=== PATIENT | female | born 1960 | race Caucasian/White ===

== ENCOUNTER 2020-03-23 12:44 | Observation (INO) | payer BC, MEDICAID ==
[~2020-03-23] VITALS: Ht 152.4 cm; Wt 57.7 kg
[2020-03-23 13:15] LABS: BASOPHILS # (AUTO) 0.1 X10'3 (0-0.2); BASOPHILS % (AUTO) 0.8 % (0-1); EOSINOPHILS % (AUTO) 0.5 % (0-6); HEMATOCRIT 42.7 % (35.0-45.0); HEMOGLOBIN 14.3 g/dl (12.0-16.0); LYMPHOCYTES # (AUTO) 2.8 X10'3 (1.1-4.8); MEAN CORPUSCULAR HEMOGLOBIN 32.3 PG (27.0-31.0); MEAN CORPUSCULAR HGB CONC 33.4 g/dL (33.0-36.5); MEAN CORPUSCULAR VOLUME 96.5 FL (78-98); MEAN PLATELET VOLUME 8.7 FL (7.4-10.4); MONOCYTES # (AUTO) 0.5 X10'3 (0-0.9); MONOCYTES % (AUTO) 6.2 % (2-12); NEUTROPHILS # (AUTO) 4.3 X10'3 (1.8-7.7); NEUTROPHILS % (AUTO) 56.5 % (42-75); PLATELET COUNT 243 X10'3 (140-440); RED BLOOD COUNT 4.43 X10'6 (4.20-5.60); RED CELL DISTRIBUTION WIDTH 14.1 % (11.5-14.5); WHITE BLOOD COUNT 7.7 X10'3 (4.5-11.0)
[2020-03-23] MEDS ORDERED: HYDROcodone/acetaminophen 5mg/325mg tablet PO PRN (13:25)
[2020-03-23] MEDS ORDERED: morphine 2 MG/ML inj. syringe IV PRN ×2 (13:25)
[2020-03-23] MEDS ORDERED: nitroGLYCERIN 0.4mg SUBLingual tab SL PRN (13:25)
[2020-03-23] MEDS ORDERED: mag hydrox/Alum hydrox/simeth 30ml oral suspension PO PRN (13:25)
[2020-03-23] MEDS ORDERED: magnesium hydroxide 30ml (MOM) UD suspension PO PRN (13:25)
[2020-03-23] MEDS ORDERED: ondansetron/PF 4mg/2ml inj IV PRN (13:25)
[2020-03-23] MEDS ORDERED: acetaminophen 325mg tablet PO PRN ×2 (13:25)
[2020-03-23] MEDS ORDERED: HYDROcodone/acetaminophen 10/325mg tab PO PRN (13:25)
[2020-03-23 13:34] LABS: ALANINE AMINOTRANSFERASE 24 U/L (12-78); ALBUMIN 3.4 G/DL (3.4-5.0); ALKALINE PHOSPHATASE 61 IU/L (46-116); ANION GAP 8 (8-16); ASPARTATE AMINO TRANSFERASE 25 U/L (10-37); BILIRUBIN,TOTAL 0.3 MG/DL (0.1-1.0); BLOOD UREA NITROGEN 9 MG/DL (7-18); BUN/CREATININE RATIO 8.1 (6.6-38.0); CALCIUM 9.1 MG/DL (8.5-10.1); CHLORIDE 107 MMOL/L (99-107); CREATININE 1.11 MG/DL (0.40-0.90); GLUCOSE 109 MG/DL (70-104); POTASSIUM 4.4 MMOL/L (3.5-5.1); SODIUM 142 MMOL/L (135-145); TOTAL CARBON DIOXIDE 26.6 MMOL/L (24-32); TOTAL PROTEIN 6.9 G/DL (6.4-8.2); eGFR 50 ML/MIN
[2020-03-23 13:43] LABS: MAGNESIUM 1.8 MG/DL (1.5-2.4)
[2020-03-23 13:54] LABS: D-DIMER 0.39 MG/L FEU (0-0.50)
[2020-03-23] MEDS ORDERED: TRAZ-256 PO (13:56)
[2020-03-23] MEDS ORDERED: LORA-269 PO (13:56)
[2020-03-23] MEDS ORDERED: SERT100T10 PO (13:56)
[2020-03-23] MEDS ORDERED: ZIPR40CA2 PO (13:56)
[2020-03-23 15:00] VITALS: BP 115/64
[2020-03-23] MEDS ORDERED: LORazepam 1 MG tablet PO PRN (17:20)
[2020-03-23 18:00] VITALS: BP 108/60
--- NOTE | 2020-03-23 19:26 | NUR ---
Patient in room MED 308. I have received report from amor SILVA and had the opportunity to ask questions and assume patient care.
[2020-03-23] MEDS ORDERED: traZODone 50mg tablet PO SCH (21:00)
[2020-03-23 22:00] VITALS: BP 128/64
[2020-03-24 02:00] VITALS: BP 153/62
--- NOTE | 2020-03-24 02:19 | NUR ---
PAGER ID: [phone] MESSAGE: Meagan Lopez. 59 F, 308. Here for symptomatic bradycardia. Pt hangs out in the low 40's just dropped to 35 briefly. Could we get an order for Atropine, just in case? Josué SILVA Ext [phone]
[2020-03-24] MEDS ORDERED: atropine 1 MG/1 ML vial IV PRN (04:05)
[2020-03-24 06:00] VITALS: BP 131/53
--- NOTE | 2020-03-24 06:27 | NUR ---
Problems reprioritized. Patient report given, questions answered & plan of care reviewed with Kirsten SILVA.
[2020-03-24 07:35] LABS: BASOPHILS % (AUTO) 0.6 % (0-1); EOSINOPHILS # (AUTO) 0.1 X10'3 (0-0.9); EOSINOPHILS % (AUTO) 2.2 % (0-6); LYMPHOCYTES # (AUTO) 2.6 X10'3 (1.1-4.8); LYMPHOCYTES % (AUTO) 37.6 % (21-51); MEAN CORPUSCULAR HEMOGLOBIN 32.3 PG (27.0-31.0); MEAN CORPUSCULAR HGB CONC 33.3 g/dL (33.0-36.5); MEAN CORPUSCULAR VOLUME 96.9 FL (78-98); MEAN PLATELET VOLUME 9.1 FL (7.4-10.4); MONOCYTES # (AUTO) 0.7 X10'3 (0-0.9); MONOCYTES % (AUTO) 9.9 % (2-12); NEUTROPHILS # (AUTO) 3.4 X10'3 (1.8-7.7); NEUTROPHILS % (AUTO) 49.7 % (42-75); PLATELET COUNT 244 X10'3 (140-440); RED BLOOD COUNT 4.65 X10'6 (4.20-5.60); RED CELL DISTRIBUTION WIDTH 13.9 % (11.5-14.5); WHITE BLOOD COUNT 6.8 X10'3 (4.5-11.0)
[2020-03-24] MEDS ORDERED: sertraline 50mg tablet PO SCH ×2 (08:00→21:00)
[2020-03-24] MEDS ORDERED: aspirin 81mg tablet.DR PO SCH (08:00)
[2020-03-24] MEDS ORDERED: ziprasidone 20mg capsule PO SCH ×2 (08:00→21:00)
[2020-03-24 08:08] LABS: ALBUMIN 3.4 G/DL (3.4-5.0); ANION GAP 6 (8-16); BLOOD UREA NITROGEN 14 MG/DL (7-18); BUN/CREATININE RATIO 12.3 (6.6-38.0); CALCIUM 9.1 MG/DL (8.5-10.1); CHLORIDE 109 MMOL/L (99-107); CHOL/HDL RATIO 2.6 (0.00-4.99); CHOLESTEROL 200 MG/DL (0-200); CREATININE 1.14 MG/DL (0.40-0.90); GLUCOSE 96 MG/DL (70-104); HDL CHOLESTEROL 77 MG/DL (35-60); LDL CHOLESTEROL 100 MG/DL (50-100); POTASSIUM 4.7 MMOL/L (3.5-5.1); SODIUM 144 MMOL/L (135-145); TOTAL CARBON DIOXIDE 29.4 MMOL/L (24-32); TRIGLYCERIDES 83 MG/DL (20-135); eGFR 49 ML/MIN
[2020-03-24 10:00] VITALS: BP 109/59
--- NOTE | 2020-03-24 12:11 | NUR ---
Patient is stable for discharge per MD orders. All discharge instructions and educations reviewed with patient and all questions answered. PIV Discontinued, tip intact, patient tolerated well, dressing CDI. tele monitoring removed. all known belongings sent with patient. patient wheeled to [facility] driven by kalyn.
== END 2020-03-24 12:11 | disposition home or self-care (01) ==
LOC: ER 12:45 → ED HOLD 13:24 → EDBEDREQ 14:39 → MED 3N 15:00
PROVIDERS: ADMIT Internal Medicine; ATTEND Internal Medicine
DX: R00.1 Bradycardia, unspecified (principal); F41.9 Anxiety disorder, unspecified; G47.00 Insomnia, unspecified; J44.9 Chronic obstructive pulmonary disease, unspecified; Z87.891 Personal history of nicotine dependence; Z79.899 Other long term (current) drug therapy
CPT/HCPCS: 36415; 71045; 80048; 80053; 80061; 83735; 83880; 84443; 84484; 85025; 85379; 87081; 93005; 93306; 96374; 99285; G0378; J2270